=== PATIENT | male | born 1930 | race Caucasian/White ===

== ENCOUNTER 2017-03-02 09:04 | Emergency (ER) | payer MEDICARE ==
[~2017-03-02] VITALS: Ht 170.2 cm; Wt 74.0 kg
[~2017-03-02 09:04] MED LIST: DICL1GEL TOPICAL; LEVO100T5 PO; METO50TA PO; SIMV80TA PO; WARF-58 PO
[2017-03-02 09:09] VITALS: BP 162/85; PULSE 70; RESP 16; TEMP 98; O2SAT 96
[2017-03-02] MEDS ORDERED: LIDOCAINE HCL 1% 30 ML VIAL INFIL ONE (10:15)
[2017-03-02] MEDS ORDERED: TETANUS/DIPHTHERIA TOXOID ADULT 0.5 ML VIAL IM ONE (10:15)
[2017-03-02] MEDS ORDERED: LIDOCAINE HCL 1% PF 30 ML VIAL INFIL ONE (10:30)
[2017-03-02 10:38] LABS: APTT (PATIENT) 30.3 SEC (24.3-30.1); INTERNATIONAL NORMALIZED RATIO 1.5 RATIO; PROTHROMBIN TIME - PATIENT 16.6 SEC (9.8-11.6)
--- NOTE | 2017-03-02 11:04 | RADHPO ---
EXAM DATE/TIME: 03/02/2017 10:39 [place] COMPARISON: CT ABDOMEN & PELVIS W/O CONTRAST, December 07, 2014, 7:01. INDICATIONS : Trauma. Fall. Laceration over right eyebrow. RADIATION DOSE: 64.80 CTDIvol (mGy) MEDICAL HISTORY : Hypertension. Congestive heart failure. SURGICAL HISTORY : CABG ENCOUNTER: Initial ACUITY: 1 day PAIN SCALE: 0/10 LOCATION: cranial TECHNIQUE: Multiple contiguous axial images were obtained of the head. Using automated exposure control and adj ustment of the mA and/or kV according to patient size, radiation dose was kept as low as reasonably a chievable to obtain optimal diagnostic quality images. FINDINGS: CEREBRUM: The ventricles are normal for age. No evidence of midline shift, mass lesion, hemorrhage or acute in farction. No extra-axial fluid collections are seen. POSTERIOR FOSSA: The cerebellum and brainstem are intact. The 4th ventricle is midline. The cerebellopontine angle i s unremarkable. EXTRACRANIAL: The visualized portion of the orbits is intact. SKULL: The calvaria is intact. No evidence of skull fracture. CONCLUSION: 1. No acute intracranial abnormality. Les Rosales MD on March 02, 2017 at 11:01 Board Certified Radiologist. This report was verified electronically.
--- NOTE | 2017-03-02 11:38 | PD ---
Data Data Last Documented VS Vital Signs Date Time Temp Pulse Resp B/P Pulse Ox O2 Delivery O2 Flow Rate FiO2 03/02/17 09:09 98.0 70 16 162/85 96 Room Air Orders Tetanus/Diphtheria Tox Adult (Tetanus/Di (03/02/17 10:15) ^ Irrigate (03/02/17 10:08) Ct Brain W/O Iv Contrast(Rout) (03/02/17 10:12) Prothrombin Time / Inr (Pt) (03/02/17 10:12) Act Partial Throm Time (Ptt) (03/02/17 10:12) Lidocaine Pf 1% Inj (Xylocaine-Mpf 1% In (03/02/17 10:30) Labs Laboratory Tests Test 03/02/17 10:15 Prothrombin Time 16.6 SEC Prothromb Time International 1.5 RATIO Ratio Activated Partial 30.3 SEC Thromboplast Time MDM Supervised Visit with NASREEN: Yes Procedures Procedure Narrative LACERATION LOCATION: [Forehead/right brow] LENGTH: [3 cm] NUMBER OF STITCHES/YOBANI: 12 REPAIR: The area of the laceration was prepped with Betadine and sterilely draped. The laceration was infiltrated with [-1% lidocaine with epi]. The wound was copiously irrigated and explored without evidence of foreign body, tendon injury or neurovascular injury. The wound was closed using 5-0 Ethilon, 5-0 Vicryl. This was a [double ] layer repair. A sterile dressing was applied. The patient was advised to keep the dressing clean and dry. Patient tolerated the procedure well. Magdalena Valdez Mar 02, 2017 11:38
--- NOTE | 2017-03-02 11:39 | PD ---
HPI Chief Complaint: Laceration/Skin Injury Time Seen by Provider: 10:04 Travel History International Travel<30 days: No Contact w/Intl Traveler<30days: No Traveled to known affect area: No History of Present Illness HPI Patient is an 86-year-old male who presents to emergency room for facial laceration. Patient reports that he tripped over a brick while at home today, he landed on his face. Denies any loss of consciousness. He does take Coumadin daily. Patient denies any headache or dizziness at this time. Patient with no complaints. PFSH Past Medical History Arthritis: Yes Asthma: No Autoimmune Disease: No Blood Disorders: No Anxiety: No Depression: No Heart Rhythm Problems: Yes Cancer: No Cardiovascular Problems: Yes High Cholesterol: Yes Chemotherapy: No Chest Pain: Yes COPD: No Cerebrovascular Accident: No Coronary Artery Disease: Yes Diabetes: No Diminished Hearing: No Endocrine: Yes GERD: Yes Genitourinary: No Hiatal Hernia: No Hypertension: Yes Immune Disorder: No Kidney Stones: No Musculoskeletal: Yes Neurologic: No Psychiatric: Yes Reproductive: No Respiratory: No Migraines: No Radiation Therapy: No Renal Failure: No Seizures: No Sickle Cell Disease: No Sleep Apnea: No Thyroid Disease: Yes Ulcer: No Past Surgical History Abdominal Surgery: No AICD: No Arteriovenous Shunt: No Cardiac Surgery: Yes (CABG) Coronary Artery Bypass Graft: Yes () Ear Surgery: No Eye Surgery: Yes (BILATERAL CATARACTS) Genitourinary Surgery: No Insulin Pump: No Joint Replacement: Yes (metal bracket on L5 in back) Neurologic Surgery: Yes (L5 BULGING DISC PER PT) Oral Surgery: No Pacemaker: No Social History Alcohol Use: Yes (RARE) Tobacco Use: No Substance Use: No Allergies-Medications (Allergen,Severity, Reaction): Coded Allergies: Percocet (Verified Allergy, Severe, Hallucinations, Disoriented, Insomnia , 03/02/17) Reported Meds & Prescriptions Reported Meds & Active Scripts Active Levothyroxine (Levothyroxine Sodium) 100 Mcg Tab 100 Mcg PO DAILY Warfarin 3 Mg Tab 3 Mg PO DAILY Reported Metoprolol Tartrate 50 Mg Tab 50 Mg PO BID Simvastatin 80 Mg Tab 80 Mg PO DAILY Review of Systems General / Constitutional: No: Fever Eyes: No: Visual changes HENT: No: Headaches Cardiovascular: No: Chest Pain or Discomfort Respiratory: No: Shortness of Breath Gastrointestinal: No: Abdominal Pain Genitourinary: No: Dysuria Musculoskeletal: No: Pain Skin: No Rash Neurologic: No: Weakness Psychiatric: No: Depression Endocrine: No: Polydipsia Hematologic/Lymphatic: No: Easy Bruising Physical Exam Narrative GENERAL: No acute distress, nontoxic SKIN: Focused skin assessment warm/dry. Patient with 3cm laceration above right eyebrow - bleeding controlled HEAD: Atraumatic. Normocephalic. EYES: Pupils equal and round. No scleral icterus. No injection or drainage. ENT: No nasal bleeding or discharge. Mucous membranes pink and moist. NECK: Trachea midline. No JVD. Patient with no midline cervical tenderness CARDIOVASCULAR: Regular rate and rhythm. No murmur appreciated. RESPIRATORY: No accessory muscle use. Clear to auscultation. Breath sounds equal bilaterally. GASTROINTESTINAL: Abdomen soft, non-tender, nondistended. Hepatic and splenic margins not palpable. MUSCULOSKELETAL: No obvious deformities. No clubbing. No cyanosis. No edema. NEUROLOGICAL: Awake and alert. No obvious cranial nerve deficits. Motor grossly within normal limits. Normal speech. PSYCHIATRIC: Appropriate mood and affect; insight and judgment normal. Data Data Last Documented VS Vital Signs Date Time Temp Pulse Resp B/P Pulse Ox O2 Delivery O2 Flow Rate FiO2 03/02/17 09:09 98.0 70 16 162/85 96 Room Air Orders Tetanus/Diphtheria Tox Adult (Tetanus/Di (03/02/17 10:15) ^ Irrigate (03/02/17 10:08) Ct Brain W/O Iv Contrast(Rout) (03/02/17 10:12) Prothrombin Time / Inr (Pt) (03/02/17 10:12) Act Partial Throm Time (Ptt) (03/02/17 10:12) Lidocaine Pf 1% Inj (Xylocaine-Mpf 1% In (03/02/17 10:30) Labs Laboratory Tests Test 03/02/17 10:15 Prothrombin Time 16.6 SEC Prothromb Time International 1.5 RATIO Ratio Activated Partial 30.3 SEC Thromboplast Time MDM Medical Decision Making Medical Screen Exam Complete: Yes Emergency Medical Condition: Yes Interpretation(s) Vital Signs Date Time Temp Pulse Resp B/P Pulse Ox O2 Delivery O2 Flow Rate FiO2 03/02/17 09:09 98.0 70 16 162/85 96 Room Air Last Impressions Head CT 03/02/17 1012 Signed Impressions: Service Date/Time: Thursday, March 02, 2017 10:39 - CONCLUSION: 1. No acute intracranial abnormality. Les Rosales MD INR 1.5 Differential Diagnosis Intracranial hemorrhage, supratherapeutic INR, facial laceration Narrative Course 86-year-old male who presents to emergency room with complaints of facial laceration. Patient reports that he was a trip and fall, no loss of consciousness. Patient is currently on Coumadin. CT of the head negative for intracranial hemorrhage, there is subtherapeutic at 1.5. Laceration was sutured , he will return to the emergency room or to his primary care doctor and 5-7 days for suture removal. he will return to emergency room earlier if he develops any signs of infection. Tetanus was updated today Diagnosis Primary Impression: Facial laceration Additional Impression: Subtherapeutic international normalized ratio (INR) Patient Instructions: General Instructions Additional Instructions: Suture removal in 5-7 days Please return to ER if develop any signs of infection, return to ER in 48 hours for wound check Return to the emergency room if you develops any headache or dizziness. Your INR is 1.5 - it is subtherapeutic, please notify your primary care doctor Bacitracin dressings to wound, keep area clean and dry Disposition: 01 DISCHARGE HOME Condition: Stable Yahaira Woodall DO Mar 02, 2017 11:39
== END 2017-03-02 11:50 | disposition home or self-care (01) ==
LOC: PHEFT 09:04
DX: S01.81XA Laceration without foreign body of other part of head, initial encounter (principal); I25.10 Atherosclerotic heart disease of native coronary artery without angina pectoris; I10 Essential (primary) hypertension; W18.09XA Striking against other object with subsequent fall, initial encounter; Y92.009 Unspecified place in unspecified non-institutional (private) residence as the place of occurrence of the external cause; Z23 Encounter for immunization
CPT/HCPCS: 12052; 70450; 85610; 85730; 90471; 90714

== ENCOUNTER 2017-03-08 02:16 | Emergency (ER) | payer MEDICARE ==
[~2017-03-08] VITALS: Ht 170.2 cm; Wt 74.2 kg
[~2017-03-08 02:16] MED LIST changes: -DICL1GEL TOPICAL
[2017-03-08 02:34] VITALS: BP 146/82; PULSE 66; RESP 12; TEMP 97.6; O2SAT 96
--- NOTE | 2017-03-08 04:09 | PD ---
HPI Chief Complaint: Wound/Suture/Staple Re-Check Time Seen by Provider: 04:06 Travel History International Travel<30 days: No Contact w/Intl Traveler<30days: No Traveled to known affect area: No History of Present Illness HPI 86-year-old male presents to the emergency department 5 days after sustaining a forehead laceration. Patient states that has been doing well and voices no concerns or complaints. No fever no chills no nausea no vomiting no purulent discharge. PFSH Past Medical History Narrative Medical CAD dyslipidemia; nursing notes reviewed Arthritis: Yes Asthma: No Autoimmune Disease: No Blood Disorders: No Anxiety: No Depression: No Heart Rhythm Problems: Yes Cancer: No Cardiovascular Problems: Yes High Cholesterol: Yes Chemotherapy: No Chest Pain: Yes COPD: No Cerebrovascular Accident: No Coronary Artery Disease: Yes Diabetes: No Diminished Hearing: No Endocrine: Yes GERD: Yes Genitourinary: No Hiatal Hernia: No Hypertension: Yes Immune Disorder: No Kidney Stones: No Musculoskeletal: Yes Neurologic: No Psychiatric: Yes Reproductive: No Respiratory: No Migraines: No Radiation Therapy: No Renal Failure: No Seizures: No Sickle Cell Disease: No Sleep Apnea: No Thyroid Disease: Yes Ulcer: No Tetanus Vaccination: < 5 Years Influenza Vaccination: Yes Past Surgical History Abdominal Surgery: No AICD: No Arteriovenous Shunt: No Cardiac Surgery: Yes (CABG) Coronary Artery Bypass Graft: Yes () Ear Surgery: No Eye Surgery: Yes (BILATERAL CATARACTS) Genitourinary Surgery: No Insulin Pump: No Joint Replacement: Yes (metal bracket on L5 in back) Neurologic Surgery: Yes (L5 BULGING DISC PER PT) Oral Surgery: No Pacemaker: No Social History Alcohol Use: No (DENIES) Tobacco Use: No Substance Use: No Allergies-Medications (Allergen,Severity, Reaction): Coded Allergies: Percocet (Verified Allergy, Severe, Hallucinations, Disoriented, Insomnia , 03/08/17) Reported Meds & Prescriptions Reported Meds & Active Scripts Active Levothyroxine (Levothyroxine Sodium) 100 Mcg Tab 100 Mcg PO DAILY Warfarin 3 Mg Tab 3 Mg PO DAILY Reported Metoprolol Tartrate 50 Mg Tab 50 Mg PO BID Simvastatin 80 Mg Tab 80 Mg PO DAILY Review of Systems Except as stated in HPI: all other systems reviewed are Neg Physical Exam Narrative GENERAL: Well developed well-nourished male in no acute distress no respiratory distress GCS 15 SKIN: Warm and dry. Right forehead laceration shows evidence of being well- healed no drainage no induration no tenderness. HEAD: Normocephalic. Data Data Last Documented VS Vital Signs Date Time Temp Pulse Resp B/P Pulse Ox O2 Delivery O2 Flow Rate FiO2 03/08/17 02:44 66 18 03/08/17 02:34 97.6 146/82 96 MDM Medical Decision Making Medical Screen Exam Complete: Yes Emergency Medical Condition: Yes Medical Record Reviewed: Yes Differential Diagnosis Suture removal, wound check Narrative Course Patient is here for wound check and have sutures removed; site looks stable for removal of sutures in patient encouraged to continue to keep site clean and dry apply Polysporin ointment and to follow-up with his primary care provider Diagnosis Primary Impression: Visit for suture removal Referrals: Primary Care Physician call for appointment Patient Instructions: General Instructions Additional Instructions: Continue to keep site clean and dry Continue to apply Polysporin ointment to one site Return to the emergency department for any concerns or change in condition follow-up with her primary care provider Disposition: 01 DISCHARGE HOME Condition: Stable Tabatha Burton MD Mar 08, 2017 04:09
[2017-03-08] MEDS ORDERED: XARE20TA PO (16:01)
[2017-03-08] MEDS ORDERED: ALPR0.5T3 PO (16:08)
== END 2017-03-08 04:23 | disposition home or self-care (01) ==
LOC: PHEFT 02:16
DX: S01.81XD Laceration without foreign body of other part of head, subsequent encounter (principal); X58.XXXD Exposure to other specified factors, subsequent encounter; Z48.02 Encounter for removal of sutures
CPT/HCPCS: 99281

== ENCOUNTER 2017-06-13 11:21 | Emergency (ER) | payer MEDICARE ==
[~2017-06-13 11:21] MED LIST changes: +ALPR0.5T3 PO
[2017-06-13 11:28] VITALS: BP 140/88; PULSE 57; RESP 16; TEMP 97.5; O2SAT 97
--- NOTE | 2017-06-13 12:12 | PD ---
HPI Chief Complaint: Syncope/Near-Syncope Time Seen by Provider: 11:33 Travel History International Travel<30 days: No Contact w/Intl Traveler<30days: No Traveled to known affect area: No History of Present Illness HPI This 86-year-old male says he has not been feeling well. He feels lightheaded at times. He says that Tuesday afternoon he felt very dizzy and he fell back onto his bed. He is not sure if he had a loss of consciousness. He has not been having chest pain or shortness of breath. 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 He has never had a syncopal episode. He has also had an episode of atrial fibrillation in February 2016 and is on Coumadin. He has not had any numbness or tingling. He does say that his 2 months ago. He has not been eating well and he says he is does not sleep well at night. PFSH Past Medical History Arthritis: Yes Asthma: No Autoimmune Disease: No Blood Disorders: No Anxiety: No Depression: No Heart Rhythm Problems: Yes Cancer: No Cardiovascular Problems: Yes High Cholesterol: Yes Chemotherapy: No Chest Pain: Yes COPD: No Cerebrovascular Accident: No Coronary Artery Disease: Yes Diabetes: No Diminished Hearing: No Endocrine: Yes GERD: Yes Genitourinary: No Hiatal Hernia: No Hypertension: Yes Immune Disorder: No Kidney Stones: No Musculoskeletal: Yes Neurologic: No Psychiatric: Yes Reproductive: No Respiratory: No Migraines: No Radiation Therapy: No Renal Failure: No Seizures: No Sickle Cell Disease: No Sleep Apnea: No Thyroid Disease: Yes Ulcer: No Tetanus Vaccination: < 5 Years Influenza Vaccination: Yes Past Surgical History Abdominal Surgery: No AICD: No Arteriovenous Shunt: No Cardiac Surgery: Yes (CABG) Coronary Artery Bypass Graft: Yes (X'1998) Ear Surgery: No Eye Surgery: Yes (BL cataracts ) Genitourinary Surgery: No Insulin Pump: No Joint Replacement: Yes (metal bracket on L5 in back) Neurologic Surgery: Yes (L5 w/ hardware) Oral Surgery: No Pacemaker: No Social History Alcohol Use: No Tobacco Use: No Substance Use: No Allergies-Medications (Allergen,Severity, Reaction): Coded Allergies: acetaminophen (Unverified Allergy, Severe, Hallucinations, Disoriented, Insomnia, 06/13/17) DENIES oxycodone (Unverified Allergy, Severe, Hallucinations, Disoriented, Insomnia, 06/13/17) Reported Meds & Prescriptions Reported Meds & Active Scripts Active Simvastatin 80 Mg Tab 80 Mg PO DAILY Levothyroxine (Levothyroxine Sodium) 100 Mcg Tab 100 Mcg PO DAILY Reported Warfarin 3 Mg Tab 3 Mg PO DAILY Metoprolol Tartrate 50 Mg Tab 50 Mg PO BID Review of Systems General / Constitutional: No: Fever, Chills Eyes: No: Diploplia, Blurred Vision HENT: Positive: Lightheadedness, No: Headaches, Vertigo Cardiovascular: No: Chest Pain or Discomfort, Tachycardia Respiratory: No: Cough, Shortness of Breath Gastrointestinal: No: Vomiting, Diarrhea Genitourinary: No: Urgency, Frequency Musculoskeletal: No: Myalgias, Arthralgias Skin: No Rash, No Itching Neurologic: Positive: Weakness, Dizziness Endocrine: No: Heat Intolerance Hematologic/Lymphatic: No: Easy Bruising Physical Exam Narrative GENERAL: Well-developed male SKIN: Focused skin assessment warm/dry. HEAD: Atraumatic. Normocephalic. EYES: Pupils equal and round. No scleral icterus. No injection or drainage. ENT: No nasal bleeding or discharge. Mucous membranes pink and moist. NECK: Trachea midline. No JVD. CARDIOVASCULAR: Regular rate and rhythm. No murmur appreciated. RESPIRATORY: No accessory muscle use. Clear to auscultation. Breath sounds equal bilaterally. GASTROINTESTINAL: Abdomen soft, non-tender, nondistended. Hepatic and splenic margins not palpable. MUSCULOSKELETAL: No obvious deformities. No clubbing. No cyanosis. No edema. NEUROLOGICAL: Awake and alert. No obvious cranial nerve deficits. Motor grossly within normal limits. Normal speech. PSYCHIATRIC: Appropriate mood and affect; insight and judgment normal. Data Data Last Documented VS Vital Signs Date Time Temp Pulse Resp B/P (MAP) Pulse Ox O2 Delivery O2 Flow Rate FiO2 06/13/17 12:30 53 16 149/59 (89) 97 Room Air 06/13/17 11:28 97.5 Orders Orders Electrocardiogram (06/13/17 11:43) Complete Blood Count With Diff (06/13/17 11:43) Comprehensive Metabolic Panel (06/13/17 11:43) Troponin I (06/13/17 11:43) Magnesium (Mg) (06/13/17 11:43) Thyroid Stimulating Hormone (06/13/17 11:43) Prothrombin Time / Inr (Pt) (06/13/17 11:50) Labs Laboratory Tests Test 06/13/17 12:00 White Blood Count 7.2 TH/MM3 Red Blood Count 4.36 MIL/MM3 Hemoglobin 13.1 GM/DL Hematocrit 39.0 % Mean Corpuscular Volume 89.4 FL Mean Corpuscular Hemoglobin 30.1 PG Mean Corpuscular Hemoglobin Concent 33.7 % Red Cell Distribution Width 13.5 % Platelet Count 186 TH/MM3 Mean Platelet Volume 8.5 FL Neutrophils (%) (Auto) 67.7 % Lymphocytes (%) (Auto) 20.5 % Monocytes (%) (Auto) 9.5 % Eosinophils (%) (Auto) 1.6 % Basophils (%) (Auto) 0.7 % Neutrophils # (Auto) 4.8 TH/MM3 Lymphocytes # (Auto) 1.5 TH/MM3 Monocytes # (Auto) 0.7 TH/MM3 Eosinophils # (Auto) 0.1 TH/MM3 Basophils # (Auto) 0.1 TH/MM3 CBC Comment DIFF FINAL Differential Comment Prothrombin Time 16.1 SEC Prothromb Time International Ratio 1.4 RATIO Blood Urea Nitrogen 29 MG/DL Creatinine 2.00 MG/DL Random Glucose 117 MG/DL Total Protein 6.6 GM/DL Albumin 3.3 GM/DL Calcium Level 8.5 MG/DL Magnesium Level 2.1 MG/DL Alkaline Phosphatase 72 U/L Aspartate Amino Transf (AST/SGOT) 15 U/L Alanine Aminotransferase (ALT/SGPT) 18 U/L Total Bilirubin 0.3 MG/DL Sodium Level 140 MEQ/L Potassium Level 4.2 MEQ/L Chloride Level 107 MEQ/L Carbon Dioxide Level 23.6 MEQ/L Anion Gap 9 MEQ/L Estimat Glomerular Filtration Rate 32 ML/MIN Troponin I LESS THAN 0.02 NG/ML Thyroid Stimulating Hormone 3rd Gen 0.414 uIU/ML [facility] Medical Decision Making Medical Screen Exam Complete: Yes Emergency Medical Condition: Yes Medical Record Reviewed: Yes Differential Diagnosis Differential includes insomnia, fatigue, electrolyte imbalance, dysrhythmia Narrative Course EKG shows sinus arrhythmia at a rate of about 56. This is been present on previous tracings. His INR is slightly low and I have recommended he take an extra Coumadin today. Creatinine is 2 which is similar to previous values. I have encouraged him to force fluids. Otherwise see appears stable and will be released Diagnosis Primary Impression: Near syncope Disposition: 01 DISCHARGE HOME Condition: Stable Sharath Perez MD Jun 13, 2017 11:53
[2017-06-13 12:13] LABS: AUTOMATED NEUTROPHIL # 4.8 TH/MM3 (1.8-7.7); BASOPHIL # 0.1 TH/MM3 (0-0.2); BASOPHIL % 0.7 % (0.0-2.0); EOSINOPHIL # 0.1 TH/MM3 (0-0.4); EOSINOPHIL % 1.6 % (0.0-4.0); HEMO FLAGS DIFF FINAL; LYMPH % 20.5 % (9.0-44.0); LYMPHOCYTE # 1.5 TH/MM3 (1.0-4.8); MEAN CELL VOLUME 89.4 FL (80.0-100.0); MEAN CORPUSCULAR HEMOGLOBIN 30.1 PG (27.0-34.0); MEAN CORPUSCULAR HGB CONC 33.7 % (32.0-36.0); MONO % 9.5 % (0.0-8.0); NEUT % 67.7 % (16.0-70.0); PLATELET COUNT 186 TH/MM3 (150-450); RED BLOOD COUNT 4.36 MIL/MM3 (4.50-5.90); RED CELL DISTRIBUTION WIDTH 13.5 % (11.6-17.2); WHITE BLOOD COUNT 7.2 TH/MM3 (4.0-11.0)
[2017-06-13 12:20] LABS: CHLORIDE 107 MEQ/L (98-107); POTASSIUM 4.2 MEQ/L (3.5-5.1); SODIUM (NA) 140 MEQ/L (136-145)
[2017-06-13 12:22] LABS: INTERNATIONAL NORMALIZED RATIO 1.4 RATIO; PROTHROMBIN TIME - PATIENT 16.1 SEC (9.8-11.6)
[2017-06-13 12:23] LABS: ANION GAP 9 MEQ/L (5-15); BICARBONATE 23.6 MEQ/L (21.0-32.0); BLOOD UREA NITROGEN 29 MG/DL (7-18); MAGNESIUM 2.1 MG/DL (1.5-2.5)
[2017-06-13 12:26] LABS: ALT (GPT) 18 U/L (12-78)
[2017-06-13 12:27] LABS: AST (GOT) 15 U/L (15-37); GLOMERULAR FILTRATION RATE 32 ML/MIN (>89)
[2017-06-13 12:28] LABS: TOTAL BILIRUBIN ADULT 0.3 MG/DL (0.2-1.0)
[2017-06-13 12:29] LABS: ALKALINE PHOSPHATASE 72 U/L (45-117)
[2017-06-13 12:30] VITALS: BP 149/59; PULSE 53; RESP 16; O2SAT 97
--- NOTE | 2017-06-14 21:03 | EKG ---
Date Performed: 06/13/2017 Time Performed: 11:56:55 PTAGE: 86 years EKG: SINUS BRADYCARDIA WITH MARKED SINUS ARRHYTHMIA WITH FIRST DEGREE AV BLOCK POSSIBLE RIGHT VE NTRICULAR CONDUCTION DELAY CONSIDER INFERIOR MYOCARDIAL INFARCTION-AGE UNDETERMINATE. ABNORMAL ECG PREVIOUS TRACING : 03/18/2016 00.28 DOCTOR: Scout Finley Interpretating Date/Time 06/14/2017 21:01:49
[2017-07-01] MEDS ORDERED: METO50TA PO (14:16)
[2017-07-05] MEDS ORDERED: TRIA0.022 TOPICAL (14:16)
== END 2017-06-13 13:25 | disposition home or self-care (01) ==
LOC: PHED 11:21
DX: R55 Syncope and collapse (principal); E78.00 Pure hypercholesterolemia, unspecified; I10 Essential (primary) hypertension; I25.10 Atherosclerotic heart disease of native coronary artery without angina pectoris; I48.91 Unspecified atrial fibrillation; K21.9 Gastro-esophageal reflux disease without esophagitis; Z79.01 Long term (current) use of anticoagulants; Z95.1 Presence of aortocoronary bypass graft
CPT/HCPCS: 80053; 83735; 84443; 84484; 85025; 85610; 93005; 99284